=== PATIENT | female | born 1955 | race Caucasian/White ===

== ENCOUNTER → 2021-05-22 | Outpatient (CLI) | payer OTHER ==
[~2021-05-22] MED LIST: ALBU90OI INH; ALPR.5; ASPI81EC PO; BENZ100A PO; CYCL10 PO; DULO30 PO; FEXO180 PO; HYDACE5 PO; PROM25 PO; SPACE CHAMBER1 EACH MC; SULTRIDS PO; [UNRECOGNIZED DRUG - OTHER] TOP
== END | disposition home or self-care (01) ==
LOC: LAB SHORT 10:16
DX: R30.0 Dysuria (principal)
CPT/HCPCS: 87077; 87086; 87186

== ENCOUNTER → 2021-11-07 | Outpatient (CLI) | payer OTHER | END | disposition home or self-care (01) | LOC: LAB 08:30 → LAB SHORT 08:30 | DX: N39.0 Urinary tract infection, site not specified (principal) | CPT/HCPCS: 87077; 87086; 87186 ==

== ENCOUNTER 2024-06-29 10:34 | Day surgery (SDC) | payer OTHER ==
[~2024-06-29] VITALS: Ht 170.2 cm; Wt 87.1 kg
[~2024-06-29 10:34] MED LIST changes: +ALLEGRA ALLERGY60 MG PO; +NS 500 ML IV ONE
[2024-06-29] MEDS ORDERED: ACET500 (10:55)
[2024-06-29] MEDS ORDERED: IBUP200 (10:55)
[2024-06-29] MEDS ORDERED: NS 500 ML IV ONE (11:07)
--- NOTE | 2024-06-29 11:16 | NUR ---
06/29/24 1116 Chel Barrow TIME OUT PERFORMED AT BEDSIDE WITH DR TOWNSEND AT 1113 IMMEDIATELY PRIOR TO INJECTION OF 5ML OF SOLUTION CONSISTING OF 9ML 1% LIDOCAINE WITH EPI [id number] AND 1ML 8.4% SODIUM BICARBONATE. PATIENT TOLERATED PROCEDURE WELL.
[2024-06-29] MEDS ORDERED: Midazolam HCl 1MG / ML 2ML Vial ONE (11:53)
[2024-06-29] MEDS ORDERED: Dexamethasone Sod Phos 10 MG/ML 1ML VIAL ONE (11:55)
[2024-06-29] MEDS ORDERED: Ondansetron HCl 2 MG / ML 2ML Vial ONE (11:55)
[2024-06-29 12:23] VITALS: BP 156/81
--- NOTE | 2024-06-29 12:34 | NUR ---
06/29/24 1234 Macy Ferrara PT AMBULATORY TO BATHROOM, VOIDED X1 PRIOR TO DISCHARGE
== END 2024-06-29 12:46 | disposition home or self-care (01) ==
LOC: ORSCSDS 10:34
DX: M65.331 Trigger finger, right middle finger (principal); M67.48 Ganglion, other site; I10 Essential (primary) hypertension; K75.81 Nonalcoholic steatohepatitis (NASH); K21.9 Gastro-esophageal reflux disease without esophagitis; E66.9 Obesity, unspecified; Z68.30 Body mass index [BMI] 30.0-30.9, adult; Z87.891 Personal history of nicotine dependence
CPT/HCPCS: 88304; J1100; J2250; J2405; J7040

== ENCOUNTER → 2025-04-05 | Outpatient (CLI) | payer OTHER ==
[~2025-04-05] MED LIST changes: +ACET500; +IBUP200; -NS 500 ML IV ONE
[2025-04-05 15:21] LABS: Source, Urine Clean Catch
[2025-04-05 15:29] LABS: Bilirubin, Urine Neg (Neg); Color, Urine Yellow (P-Yellow); Glucose Qualitative, Urine Neg (Neg); Ketones, Urine Neg (Neg); Leukocyte Esterase, Urine 1+ (Neg); Protein, Urine 1+ (Neg); Specific Gravity, Urine 1.005 (1.003-1.022); Urobilinogen, Urine NORM (Normal)
[2025-04-05 15:44] LABS: Red Blood Cells, Urine 0-2 /hpf (0-2)
== END ==
LOC: LAB SHORT 15:19 → LAB 15:19
PROVIDERS: Nurse Practitioner Family
DX: R30.0 Dysuria (principal)
CPT/HCPCS: 81001; 87077; 87086; 87186